=== PATIENT | female | born 1945 | race Caucasian/White ===

== ENCOUNTER → 2016-06-10 | Outpatient (REF) | LOC: CLAB.BLUES 13:14 | PROVIDERS: ATTEND Family Medicine | DX: R07.0 Pain in throat (principal) | CPT/HCPCS: 87651 ==

== ENCOUNTER → 2016-06-15 | Outpatient (REF) ==
[2016-06-15 14:21] LABS: BASOPHILS % (AUTO) 0 % (0-2); EOSINOPHILS # (AUTO) 0.1 10^3uL; EOSINOPHILS % (AUTO) 1 % (0-4); LYMPHOCYTES # (AUTO) 1.9 X10^3; MEAN CORPUSCULAR HGB CONC 32.1 g/dL (31.0-37.0); MEAN CORPUSCULAR VOLUME 97 FL (80-100); MEAN PLATELET VOLUME 10.3 FL (6.0-9.5); MONOCYTES # (AUTO) 0.5 X10^3; MONOCYTES % (AUTO) 7 % (3-11); NEUTROPHILS # (AUTO) 4.8 X10^3; NEUTROPHILS % (AUTO) 66 % (51-67); PLATELET COUNT 246 10^3uL (150-450); WHITE BLOOD COUNT 7.25 10^3uL (4.0-11.0)
[2016-06-15 15:24] LABS: ALBUMIN 3.9 g/dL (3.4-5.0); ANION GAP 16.2 MEQ/L (3-15); TOTAL PROTEIN 7.2 g/dL (6.4-8.5)
== END ==
LOC: CLAB.BLUES 14:05
PROVIDERS: ATTEND Family Medicine
DX: I10 Essential (primary) hypertension (principal); E11.65 Type 2 diabetes mellitus with hyperglycemia
CPT/HCPCS: 80053; 80061; 82043; 83036; 83540; 85025

== ENCOUNTER → 2016-07-04 | Outpatient (REF) ==
[2016-07-04 13:57] LABS: BILIRUBIN,URINE Negative (Negative); COLOR,URINE Yellow; GLUCOSE, URINE (UA) 2+ (Negative); LEUKOCYTE ESTERASE, URINE 1+ (Negative); UROBILINOGEN,URINE 0.2 mg/dL (0.2-1.0)
[2016-07-04 13:59] LABS: CLARITY,URINE Slightly Cloudy
[2016-07-04 14:00] LABS: URINE CENTRIFUGED VOLUME 12 mL
== END ==
LOC: CLAB.BLUES 11:40
PROVIDERS: ATTEND Family Medicine
DX: R30.0 Dysuria (principal)
CPT/HCPCS: 81003; 81015; 87088

== ENCOUNTER → 2016-07-27 | Outpatient (CLI) | payer OTHER ==
--- NOTE | 2016-07-27 17:40 | Diagnostic Imaging Report ---
EXAM: UPPER GI SERIES W/ KUB INDICATION: Mid epigastric pain. COMPARISON: Abdominal KUB radiographs 03/19/2008. FINDINGS: The esophagus is widely patent without filling defect or stricture. Normal esophageal mucosa. There is limited peristalsis of the esophagus above the level of the aortic arch. When the patient is not in an upright position, contrast accumulates in the upper third of the esophagus and does not pass until the patient sits upright. There is otherwise normal primary and secondary contractions of the mid and distal esophagus. Contrast empties readily through the GE junction and into the stomach. There is no esophageal hiatal hernia. No spontaneous gastroesophageal reflux was observed. A 13 mm barium tablet easily passes through the GE junction. Hypotonic morphology of the stomach. Normal mucosa of the stomach and duodenum. Normal morphology of the duodenum with the ligament of Treitz in the expected position. IMPRESSION: Ineffective peristalsis of the upper third esophagus. This results in accumulation of contrast within the upper third of the contrast until the patient returns to an upright position. There are normal primary and secondary contractions of the mid and distal esophagus. Upper GI is otherwise unremarkable. Dictated by: Dictated on workstation # [id number]
== END ==
LOC: RAD 11:21
PROVIDERS: ATTEND Family Medicine
DX: R10.13 Epigastric pain (principal)
CPT/HCPCS: 74241

== ENCOUNTER → 2016-08-19 | Outpatient (REF) ==
[2016-08-19 15:18] LABS: MEAN CORPUSCULAR HEMOGLOBIN 30.4 PG (26.0-34.0); MEAN CORPUSCULAR VOLUME 95 FL (80-100); MEAN PLATELET VOLUME 11.1 FL (6.0-9.5); PLATELET COUNT 211 10^3uL (150-450); WHITE BLOOD COUNT 6.32 10^3uL (4.0-11.0)
[2016-08-19 15:26] LABS: ALBUMIN 4.1 g/dL (3.4-5.0); ANION GAP 14.5 MEQ/L (3-15); CALCULATED IONIZED CALCIUM 3.9 mg/dL (3.8-4.6); TOTAL PROTEIN 7.8 g/dL (6.4-8.5)
[2016-08-19 15:32] LABS: BAND NEUTROPHILS % 1 % (0-6); EOSINOPHILS % 0 % (0-4); LYMPHOCYTES # 1.2 #; MONOCYTES # 0.2 #; MONOCYTES % 4 % (3-11); RBC MORPH NORMAL (NORMAL); SEGMENTED NEUTROPHILS % 76 % (51-67); TOTAL CELLS COUNTED 100
== END ==
LOC: CLAB.BLUES 15:07
PROVIDERS: ATTEND Family Medicine
DX: R10.812 Left upper quadrant abdominal tenderness (principal)
CPT/HCPCS: 80053; 82150; 85007; 85027

== ENCOUNTER → 2016-08-23 | Outpatient (REF) ==
[2016-08-23 16:28] LABS: BILIRUBIN,URINE Negative (Negative); GLUCOSE, URINE (UA) Negative (Negative); LEUKOCYTE ESTERASE ,URINE 1+ (Negative); PH,URINE 6.5 (5.0 - 8.0); UROBILINOGEN,URINE 0.2 mg/dL (0.2-1.0)
[2016-08-23 16:46] LABS: CLARITY,URINE Slightly Cloudy; COLOR,URINE Yellow
[2016-08-23 16:47] LABS: RBC,URINE 0-2 /HPF; URINE CENTRIFUGED VOLUME 12 mL
== END ==
LOC: CLAB.BLUES 15:54
PROVIDERS: ATTEND Family Medicine
DX: R30.0 Dysuria (principal)
CPT/HCPCS: 81003; 81015; 87088